=== PATIENT | male | born 2000 ===

== ENCOUNTER 2021-02-19 18:00 | Emergency (ER) | payer OTHER ==
[~2021-02-19] VITALS: Ht 172.7 cm; Wt 90.9 kg
[2021-02-19] MEDS ORDERED: CYCL10 PO (18:04)
[2021-02-19 19:30] VITALS: BP 134/82
[2021-02-19] MEDS ORDERED: LIDOCAINE 5% TRANSDERMAL PATCH TD ONE (19:30)
[2021-02-19] MEDS ORDERED: KETOROLAC TROMETHAMINE 60 MG/2 ML VIAL IM ONE (19:30)
== END 2021-02-19 19:55 | disposition home or self-care (01) ==
LOC: EMS 18:00
DX: M54.5 Low back pain (principal); G89.29 Other chronic pain
CPT/HCPCS: 96372; 99283; J1885